=== PATIENT | female | born 1950 | race Caucasian/White ===

== ENCOUNTER → 2018-01-30 | Outpatient (CLI) | payer MEDICARE ==
--- NOTE | 2018-01-31 16:24 | BD ---
EXAMINATION TYPE: MG DEXA axial skeleton. DATE OF EXAM: 01/30/2018 COMPARISON: NONE CLINICAL HISTORY: 67 YR OLD FEMALE....ICD-10 CODE: Z13.820 SCREEN FOR OSTEOPOROSIS Height: 59.2 Weight: 126 FRAX RISK QUESTIONS: Alcohol (3 or more units per day): NO Family History (Parent hip fracture): NO Glucocorticoids (More than 3mos): NO (Ex: prednisone, prednisolone, methylprednisolone, dexamethasone, and hydrocortisone). History of Fracture in Adulthood: YES Secondary Osteoporosis: YES 1. Type 1 Diabetes: NO 2. Hyperthyroidism: NO 3. Menopause before 45: YES, AT 35 YRS OLD 4. Malnutrition: NO 5. Chronic liver disease: NO Rheumatoid Arthritis: NO Current Tobacco Use: YES, 1/2 PAC DAILY RISK FACTORS HISTORY OF: RT FOREARM...WITH SURGICAL REPAIR...> 51 YRS OLD Surgery to Spine FUSION CERVICAL SPINE AND LUMBAR SPINE Active: NO, HX OF BRAIN SURGERY Diet low in dairy products/other sources of calcium: NO Postmenopausal woman: 35 YRS OLD TOTAL HYST Hyperparathyroidism: NO Adrenal Insufficiency: NO MEDICATIONS: Additional Medications: BP MEDS, ZOLOFT, STATINS FOR CHOLESTEROL, RESTLESS LEGS MEDS Additional History: RLS, CHOLESTEROL,HYPERTENSION, HX OF BRAIN SURG, AND FUSIONS TO NECK AND LOWER BA CK EXAM MEASUREMENTS: Bone mineral densitometry was performed using the SABIA System. Bone mineral density as measured about the Lumbar spine is: ----- L1-L3(G/cm2): 0.886 T Score Values are as follows ----- L1: -2.9 ----- L2: -3.0 ----- L3: -1.4 ----- L4: OMIT ----- L1-L3: -2.4 Bone mineral density FIRST BONE DENSITY....BASELINE STUDY Bone mineral density about the R hip (g/cm2): 0.675 Bone mineral density about the L hip (g/cm2): 0.637 T Score values are as follows: -----R Neck: -2.4 -----L Neck: -3.2 -----R Total: -2.6 -----L Total: -2.9 Bone mineral density BASELINE STUDY FRAX%s: THERE IS A 33.5% CHANCE OF A MAJOR OSTEOPOROTIC FX AND A 16.5% FOR HIP FX.....PROBABILIT Y OF FX IN 10 YRS TIME IMPRESSION: Osteoporosis (T Score less than -2.5). There is increased fracture risk and therapy is usually indicated based on age. Re-Screen 1-2 years. NOTE: T-SCORE=SD OF THE YOUNG ADULT MEAN.
--- NOTE | 2018-02-01 09:43 | MM ---
Reason for exam: screening (asymptomatic). Last mammogram was performed 9 years and 2 months ago. History: Patient is postmenopausal. Family history of breast cancer in mother at age 54. Benign excisional biopsy of the right breast. Physical Findings: A clinical breast exam by your physician is recommended on an annual basis and results should be correlated with mammographic findings. MG 3D Screening Mammo W/Cad Bilateral CC and MLO view(s) were taken. Prior study comparison: December 09, 2008, bilateral digital screening mammogram. 1999, mammogram, performed at [facility]. The breast tissue is heterogeneously dense. This may lower the sensitivity of mammography. No significant changes when compared with prior studies. ASSESSMENT: Negative, BI-RAD 1 RECOMMENDATION: Routine screening mammogram of both breasts in 1 year.
== END | disposition home or self-care (01) ==
LOC: RADMAMWWP 15:11
PROVIDERS: ATTEND Family Medicine
DX: Z12.31 Encounter for screening mammogram for malignant neoplasm of breast (principal); Z13.820 Encounter for screening for osteoporosis; M81.0 Age-related osteoporosis without current pathological fracture
CPT/HCPCS: 77063; 77067; 77080

== ENCOUNTER 2018-04-25 17:36 | Inpatient (IN) | payer MEDICARE ==
--- NOTE | 2018-04-25 17:02 | CT ---
EXAMINATION TYPE: CT abdomen pelvis wo con DATE OF EXAM: 04/25/2018 COMPARISON: None HISTORY: Generalized abdominal pain and constipation x [address] DLP: 234 mGycm Automated exposure control for dose reduction was used. TECHNIQUE: Helical acquisition of images was performed from the lung bases through the pelvis. FINDINGS: LUNG BASES: Coarsened interstitial lung markings are seen at the lung bases. This can be seen in flui d overload/interstitial edema or early fibrosis. LIVER/GB: There are scattered hepatic cysts that are fluid attenuated and scattered benign-appearing granulomas. Too small to accurately characterize subcapsular lesion is seen within the right hepatic lobe on series 3 image 39 measuring 4 mm. Gallbladder is contracted. No cholelithiasis. PANCREAS: No significant abnormality is seen. SPLEEN: Numerous splenic parenchymal benign granulomatous calcifications are noted. ADRENALS: There is a 2.0 cm low-density right adrenal gland lesion fitting criteria for a benign baudilio hoang. KIDNEYS: No hydronephrosis or nephrolithiasis. FREE AIR: No free air is visualized ADENOPATHY: Evaluation of adenopathy is limited without intravenous contrast although there is no gr oss evidence of greater than 1 cm short axis lymph nodes within the abdomen or pelvis. URINARY BLADDER: Incompletely distended and incompletely evaluated OSSEOUS STRUCTURES: Osseous structures are grossly intact with advanced degenerative change of the f emoral acetabular joints and postsurgical changes of the spine. There is a levoscoliotic curvature of the spine. BOWEL: Large bowel is nondilated. There is a moderate amount retained colonic stool noted. Small bow el feces sign represents increased transit time with no dilated loops of small bowel or differential air-fluid levels. No focal pericolonic fat stranding is seen. Few loops of small bowel in the left up per quadrant although or unopacified appear to have mild bowel wall thickening. This is nonspecific a nd may be infectious or inflammatory. OTHER: Moderate calcific atheromatous changes are seen of the abdominal aorta and its branches. IMPRESSION: MODERATE AMOUNT RETAINED COLONIC STOOL AND SMALL BOWEL FECES SIGN INDICATIVE OF ABDOMINAL ILEUS. NO G ROSS EVIDENCE OF OBSTRUCTION. THERE IS SOMEWHAT LIMITED EVALUATION OF THE BOWEL DUE TO LACK OF ORAL C ONTRAST. MULTIPLE ADDITIONAL BENIGN FINDINGS DESCRIBED ABOVE.
[2018-04-25] MEDS ORDERED: SODIUM CHLORIDE 0.9% 1,000 ML IV STA (19:13)
[2018-04-25] MEDS ORDERED: METOCLOPRAMIDE 5 MG/ML 2 ML VIAL IVP STA ×2 (19:14→20:03)
--- NOTE | 2018-04-25 19:16 | ED ---
Abdominal Pain HPI - General Chief Complaint: Abdominal Pain Stated Complaint: ileus Time Seen by Provider: 04/25/18 19:04 Source: patient Mode of arrival: ambulatory Limitations: no limitations - History of Present Illness Initial Comments: 67-year-old female patient presents after being sent from CT with CT finding of ileus. Patient states for the last 4 days she has been constipated and having only very small bowel movements. Patient states that she has been having generalized abdominal cramping and has recently started to feel bloated. Patient states now whenever she eats, she starts to feel nauseated. States that she has had chills but no fevers. She denies any difficulty with urination. Denies any history of similar symptoms. Patient denies any recent rash, shortness breath, chest pain, back pain, numbness, tingling, dizziness, weakness, hematuria, dysuria, urinary urgency, urinary frequency, headache, visual changes, or any other complaints. - Related Data Home Medications Medication Instructions Recorded Confirmed Atorvastatin [Lipitor] 40 mg PO DAILY 04/25/18 04/25/18 Sertraline [Zoloft] 200 mg PO DAILY 04/25/18 04/25/18 amLODIPine [Norvasc] 5 mg PO BID 04/25/18 04/25/18 buPROPion XL [Wellbutrin Xl] 150 mg PO DAILY 04/25/18 04/25/18 hydrOXYzine PAMOATE 25 mg PO HS 04/25/18 04/25/18 rOPINIRole HCL 0.5 mg PO HS 04/25/18 04/25/18 Allergies Allergy/AdvReac Type Severity Reaction Status Date / Time No Known Allergies Allergy Verified 04/25/18 19:21 Review of Systems ROS Statement: Those systems with pertinent positive or pertinent negative responses have been documented in the HPI. ROS Other: All systems not noted in ROS Statement are negative. Past Medical History Past Medical History: CVA/TIA, Hypertension History of Any Multi-Drug Resistant Organisms: None Reported Additional Past Surgical History / Comment(s): 9 surgerys on head, spinal fusion Past Psychological History: Depression Smoking Status: Current every day smoker Past Alcohol Use History: Rare Past Drug Use History: None Reported General Exam Limitations: no limitations General appearance: alert, in no apparent distress, other (Physical well- developed, well-nourished adult female patient in no acute distress. Vital signs upon presentation are temperature 98.1F, pulse 74, respirations 16, blood pressure 74/45, pulse ox 96% on room air.) Eye exam: Present: normal appearance, PERRL, EOMI. Absent: scleral icterus, conjunctival injection, periorbital swelling ENT exam: Present: normal exam, normal oropharynx, mucous membranes moist Respiratory exam: Present: normal lung sounds bilaterally. Absent: respiratory distress, wheezes, rales, rhonchi, stridor Cardiovascular Exam: Present: regular rate, normal rhythm, normal heart sounds. Absent: systolic murmur, diastolic murmur, rubs, gallop, clicks GI/Abdominal exam: Present: soft, normal bowel sounds. Absent: distended, tenderness, guarding, rebound, rigid Neurological exam: Present: alert, oriented X3, CN II-XII intact Psychiatric exam: Present: normal affect, normal mood Skin exam: Present: warm, dry, intact, normal color. Absent: rash Course Vital Signs 04/25/18 04/25/18 18:33 19:19 Temperature 98.1 F Pulse Rate 74 76 Respiratory 16 18 Rate Blood Pressure 74/45 161/93 O2 Sat by Pulse 96 95 Oximetry Medical Decision Making - Medical Decision Making 67-year-old female patient presented to the emergency department today for evaluation after being sent by CT for ileus on computed tomography scan. Physical examination is relatively unremarkable. Abdomen was soft and nontender. Patient did report feeling nauseated with eating. We'll admit to the hospital for further evaluation of ileus. Did speak to Dr. Camargo who accepts patient and requests surgical consult. - Lab Data Result diagrams: 04/25/18 19:41 04/25/18 19:41 Lab Results 04/25/18 04/25/18 Range/Units 19:41 19:41 WBC 7.2 (3.8-10.6) k/uL RBC 4.63 (3.80-5.40) m/uL Hgb 13.7 (11.4-16.0) gm/dL Hct 42.8 (34.0-46.0) % MCV 92.5 (80.0-100.0) fL MCH 29.7 (25.0-35.0) pg MCHC 32.1 (31.0-37.0) g/dL RDW 13.7 (11.5-15.5) % Plt Count 259 (150-450) k/uL Neutrophils % 57 % Lymphocytes % 31 % Monocytes % 7 % Eosinophils % 3 % Basophils % 0 % Neutrophils # 4.1 (1.3-7.7) k/uL Lymphocytes # 2.2 (1.0-4.8) k/uL Monocytes # 0.5 (0-1.0) k/uL Eosinophils # 0.2 (0-0.7) k/uL Basophils # 0.0 (0-0.2) k/uL Sodium 140 (137-145) mmol/L Potassium 3.4 L (3.5-5.1) mmol/L Chloride 104 (98-107) mmol/L Carbon Dioxide 30 (22-30) mmol/L Anion Gap 6 mmol/L BUN 12 (7-17) mg/dL Creatinine 0.66 (0.52-1.04) mg/dL Est GFR (CKD-EPI)AfAm >90 (>60 ml/min/1.73 sqM) Est GFR (CKD-EPI)NonAf >90 (>60 ml/min/1.73 sqM) Glucose 89 (74-99) mg/dL Calcium 9.3 (8.4-10.2) mg/dL Total Bilirubin 0.2 (0.2-1.3) mg/dL AST 23 (14-36) U/L ALT 26 (9-52) U/L Alkaline Phosphatase 90 (38-126) U/L Total Protein 6.3 (6.3-8.2) g/dL Albumin 3.9 (3.5-5.0) g/dL Amylase 62 (30-110) U/L Lipase 128 (23-300) U/L - Radiology Data Radiology results: report reviewed CT abdomen and pelvis without contrast was obtained. Report was reviewed in its entirety. Impression by Dr. Hagan shows moderate amount retained colonic stool and small bowel feces sign indicative abdominal ileus. No gross evidence of obstruction. There is somewhat limited evaluation of the bowel due to lack oral contrast. Multiple additional benign findings as described above. Disposition Clinical Impression: Ileus Disposition: ADMITTED IP TO THIS [facility] Condition: Serious Referrals: Kurtis Barrera MD [Primary Care Provider] - 1-2 days Decision to Admit Reason: Admit from EC Decision Date: 04/25/18 Decision Time: 20:29
[2018-04-25 19:53] LABS: Basophils % (A) 0 %; Eosinophils # (A) 0.2 k/uL (0-0.7); Eosinophils % (A) 3 %; HCT 42.8 % (34.0-46.0); HGB 13.7 gm/dL (11.4-16.0); Lymphocytes # (A) 2.2 k/uL (1.0-4.8); Lymphocytes % (A) 31 %; MCH 29.7 pg (25.0-35.0); MCHC 32.1 g/dL (31.0-37.0); MCV 92.5 fL (80.0-100.0); Mean Platelet Volume 6.5; Monocytes # (A) 0.5 k/uL (0-1.0); Monocytes % (A) 7 %; Neutrophils # (A) 4.1 k/uL (1.3-7.7); Neutrophils % (A) 57 %; Platelet Count 259 k/uL (150-450); RBC 4.63 m/uL (3.80-5.40); RDW 13.7 % (11.5-15.5); WBC 7.2 k/uL (3.8-10.6)
[2018-04-25 20:02] LABS: ALT 26 U/L (9-52); AST 23 U/L (14-36); Albumin 3.9 g/dL (3.5-5.0); Alkaline Phosphatase 90 U/L (38-126); Amylase 62 U/L (30-110); Anion Gap 6 mmol/L; Blood Urea Nitrogen 12 mg/dL (7-17); Calcium 9.3 mg/dL (8.4-10.2); Carbon Dioxide 30 mmol/L (22-30); Chloride 104 mmol/L (98-107); Glucose 89 mg/dL (74-99); Lipase 128 U/L (23-300); Potassium 3.4 mmol/L (3.5-5.1); Sodium 140 mmol/L (137-145); Total Bilirubin 0.2 mg/dL (0.2-1.3); Total Protein 6.3 g/dL (6.3-8.2)
[2018-04-25] MEDS ORDERED: NALOXONE 0.4 MG/ML 1 ML VIAL IV PRN (20:24)
[2018-04-25] MEDS ORDERED: SODIUM CHLORIDE 0.9% 1,000 ML IV SCH (20:30)
[2018-04-25 20:50] LABS: Appearance,Urine Clear (Clear); Bilirubin,Urine Negative (Negative); Blood,Urine Negative (Negative); Color,Urine Colorless; Glucose,Urine (UA) Negative (Negative); Ketones,Urine Negative (Negative); Leukocyte Esterase,Urine Negative (Negative); Nitrite,Urine Negative (Negative); Protein,Urine Negative (Negative); Specific Gravity,Urine 1.006 (1.001-1.035); Urobilinogen,Urine <2.0 mg/dL (<2.0)
[2018-04-25 21:36] VITALS: BMI 24.4
[2018-04-25] MEDS: amLODIPine 5 MG TAB PO SCH (21:36)
[2018-04-25] MEDS: hydrOXYzine PAMOATE 25 MG CAP PO SCH (21:40)
[2018-04-25] MEDS: METOCLOPRAMIDE 5 MG/ML 2 ML VIAL IVP SCH (23:10)
[2018-04-26] MEDS: METOCLOPRAMIDE 5 MG/ML 2 ML VIAL IVP SCH ×4 (05:10→23:46)
[2018-04-26] MEDS ORDERED: SERTRALINE 100 MG TAB PO SCH ×3 (09:00→22:00)
[2018-04-26] MEDS: ATORVASTATIN 40 MG TAB PO SCH (10:27)
[2018-04-26] MEDS: buPROPion XL 150 MG TAB.ER.24H PO SCH (10:27)
[2018-04-26] MEDS: amLODIPine 5 MG TAB PO SCH ×2 (10:28→21:04)
[2018-04-26] MEDS ORDERED: ONDANSETRON 4 MG/2 ML VIAL IVP PRN (15:05)
[2018-04-26] MEDS ORDERED: CALCIUM CARBONATE 500 MG CHEWABLE PO PRN (15:05)
[2018-04-26] MEDS ORDERED: MELATONIN 3 MG TABLET PO PRN (15:05)
[2018-04-26] MEDS ORDERED: LORazepam 2 MG/ML INJ IV PRN (15:05)
[2018-04-26] MEDS ORDERED: LACTULOSE 20 GM/30 ML CUP PO PRN (15:05)
[2018-04-26] MEDS ORDERED: ACETAMINOPHEN TAB 325 MG TAB PO PRN (15:05)
--- NOTE | 2018-04-26 16:36 | HP ---
HISTORY AND PHYSICAL DATE OF ADMISSION: 04/25/2018 DATE OF SERVICE: 04/26/18. PRESENTING COMPLAINT: Severe constipation. HISTORY OF PRESENTING COMPLAINT: This is a pleasant 67 -year-old patient of Dr. Barrera. Chronic stable medical conditions include multiple TIA/stroke in the past, hypertension, depression, hyperlipidemia. Normally has a bowel movement every day. The patient has not had a bowel movement now for 5 days. Still has some nausea, low-grade chills, some cramping in the abdomen, underwent a CT scan of the abdomen and pelvis and was found to have possible ileus/significant amount of stool in the colon. Not much air-fluid levels are present. The patient did throw up once yesterday at Dr. Barrera's office. Admitted for the same. General surgery was consulted from the ER. is present at the bedside. Has not passed any flatus. REVIEW OF SYSTEMS: CONSTITUTIONAL: Tired. HEENT none. RESPIRATORY none. CARDIOVASCULAR none. GASTROINTESTINAL as above. GENITOURINARY none. MUSCULOSKELETAL none. DERMATOLOGICAL, HEMATOLOGIC, LYMPHATIC: None. PSYCHIATRY: Depression controlled. NEUROLOGICAL none. PAST MEDICAL HISTORY: Stroke, TIA, hypertension, depression, hyperlipidemia. PAST SURGICAL HISTORY: Multiple surgeries on the head to spinal fusion. SOCIAL HISTORY: Has smoked a pack a day for close to 45 years. Alcohol rarely. . FAMILY HISTORY: Reviewed noncontributory to presentation. HOME MEDICATIONS: 1. Hydroxyzine 25 mg q.h.s. 2. Wellbutrin XL 150 mg p.o. daily. 3. Norvasc 5 mg p.o. b.i.d. 4. Zoloft 200 mg p.o. daily. 5. Ropinirole 0.5 mg q.h.s. 6. Lipitor 40 mg p.o. daily. ALLERGIES: None. PHYSICAL EXAMINATION: VITAL SIGNS: Temperature 98.3, pulse 72, respiration 16, blood pressure 130/73, pulse ox 93% on room air. GENERAL APPEARANCE: Average build, lying in bed, not in distress. EYES: Pupils equal. Conjunctivae normal. HEENT: External appearance of nose and ears normal. Oral cavity normal. NECK: JVD not raised. Mass not palpable. RESPIRATORY: Effort normal. LUNGS: Slightly decreased breath sounds. CARDIOVASCULAR: 1st and 2nd sounds normal. No edema. ABDOMEN: Minimal tenderness, not distended, soft. Liver and spleen not palpable. Bowel sounds are present. LYMPHATIC: No lymph nodes palpable in the neck and axilla. PSYCHIATRY: Alert and oriented x3. Mood and affect normal. NEUROLOGICAL: Pupils equal. Cranial nerves grossly intact. Power and sensation grossly intact. INVESTIGATIONS: White count 7.2, hemoglobin 13.7, potassium 3.4, BUN creatinine is normal. UA negative. CT scan of the abdomen and pelvis showing moderate amount of retained colonic stool. Hence, some ileus. ASSESSMENT: 1. This is a patient presented with 5 days of no bowel movements, nausea, a bout of abdominal pain, some cramping, some ileus and severe obstipation. 2. Essential hypertension. 3. Depression not otherwise specified. 4. Hyperlipidemia. 5. Chronic nicotine dependence, patient is a cigarette smoker. 6. Restless legs syndrome. PLAN: The patient will be made n.p.o. except for p.o. pain medications. General surgery was consulted. I will give IV fluids. Care was discussed with the patient and at the bedside. Await input from surgery. Copy to Dr. Barrera. [id number] / IJN: [id number] /
[2018-04-26] MEDS: NICOTINE 21MG/24HR PATCH TRANSDERM SCH (17:32)
[2018-04-26] MEDS: LACTATED RINGERS 1,000 ML IV SCH ×2 (17:32→23:46)
[2018-04-26] MEDS: ENOXAPARIN 40 MG/0.4 ML SYRINGE SQ SCH (17:32)
--- NOTE | 2018-04-26 19:07 | P.GSCN ---
History of Present Illness Consult date: 04/26/18 Reason for Consult: Ileus, constipation History of present illness: This is a 67-year-old female who's had some complaints of abdominal pain. Her recent CAT scan shows evidence of ileus with a large amount of stool in the colon. The patient states that she had a small flatus today. She denies any significant abdominal pain. She is currently hungry. Past Medical History Past Medical History: CVA/TIA, Hypertension History of Any Multi-Drug Resistant Organisms: None Reported Additional Past Surgical History / Comment(s): 9 surgerys on head, 2 spinal fusion Past Anesthesia/Blood Transfusion Reactions: Previous Problems w/ Anesthesia Additional Past Anesthesia/Blood Transfusion Reaction / Comm: hard to wake up after anesthesia Past Psychological History: Depression Smoking Status: Current every day smoker Past Alcohol Use History: Rare Past Drug Use History: None Reported Medications and Allergies Home Medications Medication Instructions Recorded Confirmed Type Atorvastatin [Lipitor] 40 mg PO DAILY 04/25/18 04/25/18 History Sertraline [Zoloft] 200 mg PO DAILY 04/25/18 04/25/18 History amLODIPine [Norvasc] 5 mg PO BID 04/25/18 04/25/18 History buPROPion XL [Wellbutrin Xl] 150 mg PO DAILY 04/25/18 04/25/18 History hydrOXYzine PAMOATE 25 mg PO HS 04/25/18 04/25/18 History rOPINIRole HCL 0.5 mg PO HS 04/25/18 04/25/18 History Allergies Allergy/AdvReac Type Severity Reaction Status Date / Time No Known Allergies Allergy Verified 04/25/18 19:21 Surgical - Exam Vital Signs Temp Pulse Resp BP Pulse Ox 98.1 F 74 16 74/45 96 04/25/18 18:33 04/25/18 18:33 04/25/18 18:33 04/25/18 18:33 04/25/18 18:33 - General well developed, no distress - Eyes PERRL - ENT normal pinna - Neck no masses - Respiratory normal expansion - Cardiovascular Rhythm: regular - Abdomen Mild lower quadrant tenderness. There is no rebound or guarding Abdomen: soft Results - Labs 04/25/18 19:41 04/25/18 19:41 Abnormal Lab Results - Last 24 Hours (Table) 04/25/18 Range/Units 19:41 Potassium 3.4 L (3.5-5.1) mmol/L Diabetes panel 04/25/18 Range/Units 19:41 Sodium 140 (137-145) mmol/L Potassium 3.4 L (3.5-5.1) mmol/L Chloride 104 (98-107) mmol/L Carbon Dioxide 30 (22-30) mmol/L BUN 12 (7-17) mg/dL Creatinine 0.66 (0.52-1.04) mg/dL Glucose 89 (74-99) mg/dL Calcium 9.3 (8.4-10.2) mg/dL AST 23 (14-36) U/L ALT 26 (9-52) U/L Alkaline Phosphatase 90 (38-126) U/L Total Protein 6.3 (6.3-8.2) g/dL Albumin 3.9 (3.5-5.0) g/dL Calcium panel 04/25/18 Range/Units 19:41 Calcium 9.3 (8.4-10.2) mg/dL Albumin 3.9 (3.5-5.0) g/dL Pituitary panel 04/25/18 Range/Units 19:41 Sodium 140 (137-145) mmol/L Potassium 3.4 L (3.5-5.1) mmol/L Chloride 104 (98-107) mmol/L Carbon Dioxide 30 (22-30) mmol/L BUN 12 (7-17) mg/dL Creatinine 0.66 (0.52-1.04) mg/dL Glucose 89 (74-99) mg/dL Calcium 9.3 (8.4-10.2) mg/dL Adrenal panel 04/25/18 Range/Units 19:41 Sodium 140 (137-145) mmol/L Potassium 3.4 L (3.5-5.1) mmol/L Chloride 104 (98-107) mmol/L Carbon Dioxide 30 (22-30) mmol/L BUN 12 (7-17) mg/dL Creatinine 0.66 (0.52-1.04) mg/dL Glucose 89 (74-99) mg/dL Calcium 9.3 (8.4-10.2) mg/dL Total Bilirubin 0.2 (0.2-1.3) mg/dL AST 23 (14-36) U/L ALT 26 (9-52) U/L Alkaline Phosphatase 90 (38-126) U/L Total Protein 6.3 (6.3-8.2) g/dL Albumin 3.9 (3.5-5.0) g/dL Assessment and Plan Assessment: Ileus. Patient will be given lactulose today. We will reevaluate her in the a.m.
[2018-04-26] MEDS: hydrOXYzine PAMOATE 25 MG CAP PO SCH (21:03)
[2018-04-26] MEDS: SERTRALINE 100 MG TAB PO SCH (21:46)
[2018-04-26] MEDS: LACTULOSE 20 GM/30 ML CUP PO SCH (21:49)
[2018-04-27] MEDS: METOCLOPRAMIDE 5 MG/ML 2 ML VIAL IVP SCH ×3 (05:25→17:44)
[2018-04-27] MEDS: LACTULOSE 20 GM/30 ML CUP PO SCH ×4 (09:13→20:16)
[2018-04-27] MEDS: ATORVASTATIN 40 MG TAB PO SCH (09:14)
[2018-04-27] MEDS: amLODIPine 5 MG TAB PO SCH ×2 (09:14→20:15)
[2018-04-27] MEDS: ENOXAPARIN 40 MG/0.4 ML SYRINGE SQ SCH (09:15)
[2018-04-27] MEDS: buPROPion XL 150 MG TAB.ER.24H PO SCH (09:15)
[2018-04-27] MEDS: SERTRALINE 100 MG TAB PO SCH ×2 (09:15→20:15)
[2018-04-27] MEDS: NICOTINE 21MG/24HR PATCH TRANSDERM SCH (09:15)
--- NOTE | 2018-04-27 10:18 | P.PN ---
Subjective Progress Note Date: 04/27/18 A 67-year-old female seen and examined. Sitting up in bed. Patient states is passing gas no stool active bowel tones no nausea no vomiting tolerating liquid diet "abdominal pain has gone numb" patient had been given a dose of lactulose yesterday results. Computed tomography scan done on April 25 moderate amount of retained stool noted Objective - Vital Signs Vital signs: Vital Signs Temp 98.4 F 04/27/18 00:40 Pulse 77 04/27/18 00:40 Resp 16 04/27/18 00:40 BP 119/68 04/27/18 00:40 Pulse Ox 92 L 04/27/18 00:40 Intake & Output 04/26/18 04/27/18 04/27/18 18:59 06:59 18:59 Intake Total 350 Balance 350 Intake: Intake, IV Titration 350 Amount Sodium Chloride 0.9% 1, 350 000 ml @ 50 mls/hr IV . Q20H BRENDA Rx#:[id number] Oral 0 Other: # Voids 1 - Exam Physical exam Pleasant 67-year-old female sitting up in bed appears in no acute distress Lungs clear on room air no shortness of breath Heart S1-S2 audible regular Abdomen flat nondistended nontender active bowel tones no nausea no vomiting urinating no difficulty tolerating diet Extremities no edema - Labs CBC & Chem 7: 04/25/18 19:41 04/25/18 19:41 Assessment and Plan Assessment: Impression Present on admission abdominal pain with a CAT scan of the abdomen showing an ileus with a large amount of stool retained in the colon CAT scan abdomen and pelvis done on April 25 showed moderate amount retained: Stool small bowel feces indicated evident abdominal ileus no obstruction noted Hypokalemia Plan Repeat labs Clear liquid diet advance as tolerated Lactulose as ordered Increase activity No evidence of an acute surgical abdomen at this time follow with you The above impression and plan of care have been discussed and directed by signing physician. Sandra Kidd nurse practitioner acting as scribe for signing physician.
[2018-04-27 10:58] LABS: ALT 30 U/L (9-52); AST 30 U/L (14-36); Albumin 4.3 g/dL (3.5-5.0); Alkaline Phosphatase 93 U/L (38-126); Anion Gap 10 mmol/L; Blood Urea Nitrogen 12 mg/dL (7-17); Calcium 9.4 mg/dL (8.4-10.2); Carbon Dioxide 27 mmol/L (22-30); Chloride 104 mmol/L (98-107); Glucose 80 mg/dL (74-99); Potassium 3.6 mmol/L (3.5-5.1); Sodium 141 mmol/L (137-145); Total Bilirubin 0.7 mg/dL (0.2-1.3); Total Protein 6.6 g/dL (6.3-8.2)
[2018-04-27] MEDS: LACTATED RINGERS 1,000 ML IV SCH ×3 (17:45→17:48)
[2018-04-27] MEDS: hydrOXYzine PAMOATE 25 MG CAP PO SCH (20:15)
--- NOTE | 2018-04-27 20:40 | PN ---
PROGRESS NOTE DATE OF SERVICE: 04/27/2018 PRESENTING COMPLAINT: Severe constipation, ileus. INTERVAL HISTORY: Patient admitted with ileus and severe constipation, given lactulose. Did have some loose stool. Passed some flatus. No nausea, vomiting. More laxatives has been ordered by Dr. Rm. Patient has been out of bed. is at the bedside. REVIEW OF SYSTEMS: Done for constitutional, cardiovascular, GI, pulmonary; relevant findings as above. CURRENT MEDICATIONS: Current medications include IV fluids. PHYSICAL EXAMINATION: Temperature 97.9, pulse 79, respiration 16, blood pressure 109/72, pulse ox 97%. GENERAL APPEARANCE: Lying in bed, more comfortable. EYES: Pupils equal. Conjunctivae normal. HEENT: External appearance of nose and ears normal. Oral cavity normal. NECK: JVD not raised. Mass not palpable. RESPIRATORY: Effort normal. LUNGS: Slightly decreased breath sounds. CARDIOVASCULAR: First and second sounds normal. No edema. ABDOMEN: Soft, non-tender. Liver and spleen not palpable. Bowel sounds are present. PSYCHIATRY: Alert and oriented x3. Mood and affect normal. INVESTIGATIONS: Potassium 3.6. BUN and creatinine are normal. ASSESSMENT: 1. Ileus with severe constipation with some response to laxative with clinical response. 2. Essential hypertension. 3. Depression not otherwise specified. 4. Hyperlipidemia. 5. Chronic nicotine dependence. Patient is a cigarette smoker. 6. Restless legs syndrome. PLAN: Continue medication and treatment plan. Patient is put on clear liquids. Encourage the patient to ambulate. MMODL / IJN: [id number] /
[2018-04-28] MEDS: LACTATED RINGERS 1,000 ML IV SCH (00:38)
[2018-04-28] MEDS: METOCLOPRAMIDE 5 MG/ML 2 ML VIAL IVP SCH ×3 (00:38→14:11)
[2018-04-28 02:28] VITALS: RESP 16; TEMP 98.2
[2018-04-28 07:55] VITALS: BP 139/83; PULSE 79
[2018-04-28] MEDS: NICOTINE 21MG/24HR PATCH TRANSDERM SCH (09:01)
[2018-04-28] MEDS: LACTULOSE 20 GM/30 ML CUP PO SCH ×2 (09:02→14:11)
[2018-04-28] MEDS: ATORVASTATIN 40 MG TAB PO SCH (09:03)
[2018-04-28] MEDS: amLODIPine 5 MG TAB PO SCH (09:03)
[2018-04-28] MEDS: ENOXAPARIN 40 MG/0.4 ML SYRINGE SQ SCH (09:03)
[2018-04-28] MEDS: SERTRALINE 100 MG TAB PO SCH (09:05)
[2018-04-28] MEDS: buPROPion XL 150 MG TAB.ER.24H PO SCH (09:06)
--- NOTE | 2018-04-28 14:41 | P.PN ---
Subjective Progress Note Date: 04/28/18 Principal diagnosis: Constipation Patient doing well today. Denies pain tolerating diet. Having bowel movements. Objective - Vital Signs Vital signs: Vital Signs Temp 98.2 F 04/28/18 07:00 Pulse 79 04/28/18 07:00 Resp 16 04/28/18 07:00 BP 139/83 04/28/18 07:00 Pulse Ox 90 L 04/28/18 07:00 Intake & Output 04/27/18 04/28/18 04/28/18 18:59 06:59 18:59 Intake Total 1240 375 240 Balance 1240 375 240 Weight 56.699 kg Intake: Intake, IV Titration 1000 375 Amount Lactated Ringers 1,000 ml 1000 375 @ 125 mls/hr IV .Q8H BRENDA Rx#:[id number] Oral 240 240 Other: # Voids 2 2 - Exam Abdomen: Soft, nontender, nondistended - Labs CBC & Chem 7: 04/25/18 19:41 04/27/18 10:28 Assessment and Plan (1) Ileus Narrative/Plan: Patient doing better at this time. Continue diet as tolerated. Follow-up with Dr. Rm discuss outpatient colonoscopy. Status: Acute Code(s): K56.7 - ILEUS, UNSPECIFIED SNOMED Code(s): 388187735
--- NOTE | 2018-04-30 07:31 | DS ---
DISCHARGE SUMMARY DATE OF ADMISSION: 04/25/2018. DATE OF DISCHARGE: 04/28/2018. FINAL DIAGNOSES: 1. Acute ileus, present on admission. 2. Severe constipation, present on admission. 3. Essential hypertension. 4. Depression, not otherwise specified. 5. Hyperlipidemia. 6. Chronic nicotine dependence. Patient is a cigarette smoker. 7. Restless legs syndrome. CONSULTATION: Dr. Rm. HOSPITAL COURSE: This patient presented with severe constipation, ileus, had to be given laxatives to which she eventually responded. By the time of discharge, she was tolerating a diet, having bowel movements and flatus. EXAMINATION: Temp 98.2, pulse 79, blood pressure 139/83, pulse ox 98% on room air. ABDOMEN: Soft, nontender. Lungs slightly decreased breath sounds. Psych: AO x3. Care was discussed with the patient and at the bedside. DISCHARGE MEDICATIONS: 1. Lipitor 40 mg a day. 2. Zoloft 100 mg b.i.d. 3. Norvasc 5 mg p.o. b.i.d. 4. Wellbutrin XL 150 mg a day. 5. Ropinirole 0.5 mg p.o. q.h.s. 6. Melatonin 3 mg q.h.s. p.r.n. 7. Nicotine 20 mg patch. FOLLOWUP: Follow up with Dr. Barrera on May 04, 2018, follow up with Dr. Rm on May 08, 2018. Copy to Dr. Barrera. PETERL / IJN: [id number] /
== END 2018-04-28 14:26 | disposition home or self-care (01) | DRG 390 ==
LOC: EC 17:36 → 3SUR 21:00
PROVIDERS: ADMIT Hospitalist; ATTEND Hospitalist
DX: K56.7 Ileus, unspecified (principal); E78.5 Hyperlipidemia, unspecified; F17.210 Nicotine dependence, cigarettes, uncomplicated; F32.9 Major depressive disorder, single episode, unspecified; G25.81 Restless legs syndrome; I10 Essential (primary) hypertension; K59.00 Constipation, unspecified; E87.6 Hypokalemia; Z79.899 Other long term (current) drug therapy; Z86.73 Personal history of transient ischemic attack (TIA), and cerebral infarction without residual deficits; Z98.1 Arthrodesis status
CPT/HCPCS: 36415; 74176; 80053; 81003; 82150; 83690; 85025; 96361; 96374; 99285

== ENCOUNTER → 2019-02-28 | Outpatient (CLI) | payer MEDICARE ==
--- NOTE | 2019-03-01 07:45 | XR ---
EXAMINATION TYPE: XR KUB DATE OF EXAM: 02/28/2019 4:31 PM CLINICAL HISTORY: N 20.0. Right-sided pain for 4 months. TECHNIQUE: Single supine KUB image of the abdomen is obtained. COMPARISON: CT dated 04/25/2018 FINDINGS: No dilated large or small bowel is seen. Numerous loops are noted within the pelvis. There is a levoscoliosis of the lumbar spine with postsurgical change of L4-L5. Advanced arthropathy is see n of the femoral acetabular joints. Calcifications in the left upper quadrant medially within bowel b ut overall appear benign and well-circumscribed. There is diffuse osseous demineralization. IMPRESSION: Nonobstructive bowel gas pattern. No radiographic evidence of renal calculi. Advanced art hropathy of the hips, levoscoliosis, and postsurgical change of the lumbar spine.
== END | disposition home or self-care (01) ==
LOC: RADXRMAIN 15:57
PROVIDERS: ATTEND Urology
DX: N20.0 Calculus of kidney (principal)
CPT/HCPCS: 74018

== ENCOUNTER → 2019-05-24 | Outpatient (CLI) | payer MEDICARE ==
--- NOTE | 2019-05-24 16:55 | CT ---
EXAMINATION TYPE: CT lumbar spine wo con DATE OF EXAM: 05/24/2019 4:40 PM COMPARISON: 04/25/2018 HISTORY: Low back pain radiating down right leg. No known injury. CT DLP: 346.8 mGycm Automated exposure control for dose reduction was used. There is lumbar levoscoliosis. There is posterior fusion surgery at L4-5 bilaterally. There is no lum bar paraspinal mass. There is no compression fracture. There is degenerative disc space narrowing thr oughout the lumbar spine with spur formation. This is more at L4-5. I see no focal bone destruction. Sacroiliac joints are intact. There is lateral recess stenosis due to facet arthropathy at L3-4 L4-5. IMPRESSION: Previous surgery. Lateral recess stenosis as above. No compression fracture. Levoscoliosis. No significant change compared to old exam.
== END | disposition home or self-care (01) ==
LOC: RADCTMAIN 15:53
PROVIDERS: ATTEND Nurse Practitioner Adult Health
DX: M48.061 Spinal stenosis, lumbar region without neurogenic claudication (principal); M41.86 Other forms of scoliosis, lumbar region; Z98.890 Other specified postprocedural states
CPT/HCPCS: 72131

== ENCOUNTER → 2022-03-12 | Outpatient (CLI) | payer MEDICARE ==
--- NOTE | 2022-03-12 10:14 | BD ---
EXAMINATION TYPE: Axial Bone Density DATE OF EXAM: 03/12/2022 COMPARISON: 01.30.2018 CLINICAL HISTORY: 71 years year old Female. ICD-10 CODE: Z13.820 screening for osteoporosis Height: 59 Weight: 118 FRAX RISK QUESTIONS: History of Fracture in Adulthood: YES Secondary Osteoporosis: YES 3. Menopause before 45: YES AT 35 Current Tobacco Use: YES RISK FACTORS HISTORY OF: HX OF RE-FX OF RT ARM AGAIN, History of Wrist Fracture: RT WITH SURGICAL REPAIR, AN ADULT Surgery to Spine RT FOREARM, FUSION C-SPINE AND L/S SPINE AND TOTAL RT HIP REPLACEMENT Postmenopausal woman: TOTAL HYST AT 35 YRS OLD Frequent falls: UNSTEADY, BRAIN INJURY Hyperparathyroidism: NO Adrenal Insufficiency: NO MEDICATIONS: Osteoporosis Medications: TRIED, COULD NOT TAKE, TAKING NOTHING NOW IN THIS TYPE OF MEDICATION, Additional Medications: BP MEDS, ZOLOFT, CHOLESTEROL MEDS, RLS MEDS, MULTIVITAMINS FOR SENIOR, Additional History: HX OF BRAIN SURGERY, RLS, HYPERTENSION, SURG TO SPINE AND RT FOREARM, OSTEOPOROSI S, EXAM MEASUREMENTS: Bone mineral densitometry was performed using the [employer] System. FUSIONS, SPINE NOT SCANNED Bone mineral density about the L hip (g/cm2): 0.595 T Score values are as follows: -----L Neck: -3.2 -----L Total: -3.3 Bone mineral density has: Decreased -6.6% since study of: 01.30.2018 Bone mineral density about the L Wrist (g/cm2): 0.378 T Score values are as follows: -----Dist. R+U: -3.5 -----Prox. R+U: -3.9 -----Radius total: -4.2 Bone mineral density FIRST SCAN OF HER FOREARM FRAX%s: The graph provided illustrates a 36.0% chance for a major osteoporotic fx and a 19.1% chance for the hips probability for fx in 10 years time. IMPRESSION: Osteoporosis NOTE: T-SCORE=SD OF THE YOUNG ADULT MEAN.
--- NOTE | 2022-03-15 11:33 | MM ---
Reason for Exam: Screening (asymptomatic). Last mammogram was performed 4 year(s) and 1 month(s) ago. Patient History: Menarche at age 17. First Full-Term at age 22. Left ovary removed at age 33. Hysterectomy at age 33. Postmenopausal. Benign Excisional Biopsy on the right side. Mother had breast cancer, age 54. Risk Values: Marylou 5 year model risk: 3.6%. NCI Lifetime model risk: 10.2%. Prior Study Comparison: Screening Mammogram, [facility]. 12/09/2008 Bilateral Screening Mammogram, [facility]. 01/30/2018 Bilateral Screening Mammogram, [facility]. Tissue Density: The breast tissue is heterogeneously dense. This may lower the sensitivity of mammography. Findings: Analyzed By CAD. Asymmetric distortion upper right MLO view 7 cm from the nipple. Additional views are advised. No suspicious microcatheter lesions seen. Overall Assessment: Incomplete: need additional imaging evaluation, BI-RAD 0 Management: Diagnostic Mammogram of the right breast. A clinical breast exam by your physician is recommended on an annual basis and results should be correlated with mammographic findings. Electronically signed and approved by: Maverick Pruitt M.D. Radiologis
== END | disposition home or self-care (01) ==
LOC: RADBDWWP 08:58
PROVIDERS: ATTEND Family Medicine
DX: Z12.31 Encounter for screening mammogram for malignant neoplasm of breast (principal); Z13.820 Encounter for screening for osteoporosis
CPT/HCPCS: 77063; 77067; 77080

== ENCOUNTER → 2022-03-26 | Outpatient (CLI) | payer MEDICARE ==
--- NOTE | 2022-04-01 07:59 | MM ---
Reason for Exam: Additional evaluation requested from abnormal screening. Last screening mammogram was performed less than 1 month ago. Patient History: Menarche at age 17. First Full-Term at age 22. Left ovary removed at age 33. Hysterectomy at age 33. Postmenopausal. Patient has history of breast feeding. Benign Excisional Biopsy on the right side. Mother had breast cancer, age 54. Risk Values: Marylou 5 year model risk: 3.6%. NCI Lifetime model risk: 10.2%. Tissue Density: Right: The breast tissue is heterogeneously dense. This may lower the sensitivity of mammography. Findings: Analyzed By CAD. Scar marker is utilized. A scar marker overlies the distortion within the right breast may be compatible with previous biopsy. No additional suspicious abnormalities evident. Overall Assessment: Probably benign, BI-RAD 3 Management: Diagnostic Mammogram of the right breast in 6 months. A clinical breast exam by your physician is recommended on an annual basis and results should be correlated with mammographic findings. This exam should not preclude additional follow-up of suspicious palpable abnormalities. Results were given to the patient verbally at the time of exam. Electronically signed and approved by: Mayank Sheikh D.O. Radiologis
== END | disposition home or self-care (01) ==
LOC: RADMAMWWP 10:02
PROVIDERS: ATTEND Family Medicine
DX: R92.8 Other abnormal and inconclusive findings on diagnostic imaging of breast (principal); Z78.0 Asymptomatic menopausal state; Z80.3 Family history of malignant neoplasm of breast
CPT/HCPCS: 77065; G0279; 77061

== ENCOUNTER → 2022-10-06 | Outpatient (CLI) | payer MEDICARE ==
--- NOTE | 2022-10-06 15:26 | MM ---
Reason for Exam: Follow-up at short interval from prior study. Last screening mammogram was performed 7 month(s) ago. Patient History: Menarche at age 17. First Full-Term at age 22. Left ovary removed at age 33. Hysterectomy at age 33. Postmenopausal. Patient has history of breast feeding. Benign Excisional Biopsy on the right side. Mother had breast cancer, age 54. Risk Values: Marylou 5 year model risk: 3.6%. NCI Lifetime model risk: 10.2%. Prior Study Comparison: 01/30/2018 Bilateral Screening Mammogram, [facility]. 03/12/2022 Bilateral MG 3D screening mammo w/cad, [facility]. 03/26/2022 Right MG 3D work up w/cad RT, [facility]. Tissue Density: Right: The breast tissue is heterogeneously dense. This may lower the sensitivity of mammography. Findings: Analyzed By CAD. Pattern appears stable. No significant interval change is evident. Benign calcification is present. No persistent suspicious distortion evident in the prior biopsy site. Overall Assessment: Benign, BI-RAD 2 Management: Screening Mammogram of both breasts in 6 months. A clinical breast exam by your physician is recommended on an annual basis and results should be correlated with mammographic findings. This exam should not preclude additional follow-up of suspicious palpable abnormalities. Results were given to the patient verbally at the time of exam. Electronically signed and approved by: Mayank Sheikh D.O. Radiologis
== END | disposition home or self-care (01) ==
LOC: RADMAMWWP 14:59
PROVIDERS: ATTEND Family Medicine
DX: R92.8 Other abnormal and inconclusive findings on diagnostic imaging of breast (principal); Z80.3 Family history of malignant neoplasm of breast; Z78.0 Asymptomatic menopausal state; Z90.721 Acquired absence of ovaries, unilateral
CPT/HCPCS: 77065; G0279; 77061

== ENCOUNTER 2024-04-17 09:35 | Day surgery (SDC) | payer MEDICARE ==
[2024-04-12 10:12] VITALS: BMI 21.4
[~2024-04-17 09:35] MED LIST: LIDOCAINE 1% (10MG/ML) FOR IV START INTRADERMA PRN
[2024-04-17 10:07] VITALS: TEMP 98.8
[2024-04-17] MEDS: LACTATED RINGERS 1,000 ML IV SCH (10:18)
[2024-04-17] MEDS: IV FLUID CONTINUATION 1,000 ML IV ONE (10:21)
[2024-04-17] MEDS ORDERED: LIDOCAINE 1% INJ 10MG/ML (20 ML MDV) ONE (10:50)
[2024-04-17] MEDS ORDERED: PROPOFOL 10 MG/ML 20 ML VIAL IV ONE (10:50)
--- NOTE | 2024-04-17 11:17 | P.PCN ---
Date of Procedure: 04/17/24 Procedure(s) Performed: BRIEF HISTORY: Patient is a 73-year-old pleasant white female scheduled for an elective colonoscopy as a part of screening for colon cancer. PROCEDURE PERFORMED: Colonoscopy with snare polypectomy PREOPERATIVE DIAGNOSIS: Screening for colon cancer IV sedation per Anesthesia. PROCEDURE: After informed consent was obtained, the patient, was brought into the endoscopy unit. IV sedation was administered by Anesthesia under continuous monitoring. Digital rectal examination was normal. Initially the Olympus CF-160 flexible video colonoscope was then inserted in the rectum, gradually advanced into the cecum without any difficulty. Careful examination was performed as the scope was gradually being withdrawn. Ileocecal valve and the appendiceal orifice were visualized and appeared normal. Prep was excellent. Mucosa of the cecum, appeared normal. In the ascending colon there was a 1 cm broad-based polyp removed by snare polypectomy. Rest of the appeared normal. In the proximal sigmoid colon there was a 7 mm polyp removed by snare polypectomy. In the proximal rectum there was a 7 mm and 1 cm polyp removed by snare polypectomy. Rest of the ascending colon, transverse colon, descending colon, sigmoid colon, and rectum appeared normal. Retroflexion was performed in the rectum and no lesions were seen. The patient tolerated the procedure well. IMPRESSION: 1 cm ascending colon polyp s/p polypectomy 7 mm sigmoid colon polyp s/p polypectomy 7 mm 1 cm rectal polyp status post polypectomy RECOMMENDATIONS: Findings of this examination were discussed with the patient as well as her family. She was advised to follow-up with the biopsy results. If the biopsy was adenoma she can have repeat colonoscopy in 3 years.
[2024-04-17 11:38] VITALS: BP 146/86; PULSE 70; RESP 18
== END 2024-04-17 11:57 ==
LOC: ORWHC2ENDO 09:35
PROVIDERS: ATTEND Internal Medicine Gastroenterology
DX: Z12.11 Encounter for screening for malignant neoplasm of colon (principal); D12.2 Benign neoplasm of ascending colon; D12.5 Benign neoplasm of sigmoid colon; K62.1 Rectal polyp; I10 Essential (primary) hypertension; E78.5 Hyperlipidemia, unspecified; F32.A Depression, unspecified; F17.200 Nicotine dependence, unspecified, uncomplicated; Z86.73 Personal history of transient ischemic attack (TIA), and cerebral infarction without residual deficits; Z86.010 Personal history of colon polyps; Z79.899 Other long term (current) drug therapy
CPT/HCPCS: 45385; J2001; J2704; 88305

== ENCOUNTER → 2024-08-17 | Outpatient (CLI) | payer MEDICARE ==
[2024-08-17 14:59] LABS: ALT 22 U/L (4-34); AST 24 U/L (14-36); African American GFR (CKD) 83 (>60 ml/min/1.73 sqM); Albumin 4.7 g/dL (3.5-5.0); Albumin/Globulin Ratio 1.9; Alkaline Phosphatase 90 U/L (38-126); Anion Gap 5 mmol/L; Blood Urea Nitrogen 18 mg/dL (7-17); Calcium 9.9 mg/dL (8.4-10.2); Carbon Dioxide 34 mmol/L (22-30); Chloride 102 mmol/L (98-107); Globulin 2.5 g/dL; Glucose 105 mg/dL (74-99); Non-African American GFR(CKD) 72 (>60 ml/min/1.73 sqM); Potassium 3.6 mmol/L (3.5-5.1); Sodium 141 mmol/L (137-145); Total Bilirubin 0.5 mg/dL (0.2-1.3); Total Protein 7.2 g/dL (6.3-8.2)
--- NOTE | 2024-08-17 16:14 | CT ---
EXAMINATION TYPE: CT abdomen pelvis w con DATE OF EXAM: 08/17/2024 COMPARISON: 04/25/2018 CLINICAL INDICATION: Female, 73 years old with history of K42.9 UMBILICAL HERNIA; [facility], Abdominal pain just above naval area x3 weeks. TECHNIQUE: Performed with Oral Contrast and with IV Contrast, patient injected with 100ml mL of Isovue 300. CT DLP: 378.[address] CTDI: mGy Automated exposure control for dose reduction was used. FINDINGS: The lung bases are clear. The gallbladder is normal without distention, wall thickening, pericholecystic fluid or gallstones. T here is no biliary ductal dilatation. There is no focal mass or organomegaly involving the liver, pancreas or spleen. There is a stable rig ht adrenal adenoma.. There are stable hepatic cysts. There are calcified splenic granulomas. There is no solid renal mass or hydronephrosis and there is homogeneous contrast enhancement of the r enal parenchyma. The caliber the abdominal aorta is normal is no retroperitoneal adenopathy or hemorr asia. The bowel loops are normal in caliber and there is no evidence of dilatation or obstruction. No infla mmatory changes are identified in the bowel wall or mesentery. There is no free intraperitoneal air or fluid. No pelvic mass, free fluid, abscess or adenopathy. The osseous structures and soft tissues are intact. IMPRESSION: No acute changes within the abdomen or pelvis. [facility], , 08/17/2024 4:12 PM
== END | disposition home or self-care (01) ==
LOC: RADCTMAIN 14:07
PROVIDERS: ATTEND Family Medicine
DX: K42.9 Umbilical hernia without obstruction or gangrene (principal)
CPT/HCPCS: 80053; 74177; 36415; Q9967